=== PATIENT | female | born 2000 | race Caucasian/White ===

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

== ENCOUNTER 2018-04-16 08:54 | Emergency (ER) | payer OTHER ==
[~2018-04-16] VITALS: Ht 154.9 cm; Wt 64.0 kg
[~2018-04-16 08:54] MED LIST: ALBU-136 IH
[2018-04-16 09:29] VITALS: BP 132/80
[2018-04-16 11:05] VITALS: BP 128/78
== END 2018-04-16 11:05 | disposition home or self-care (01) ==
LOC: MED 08:54
DX: J45.909 Unspecified asthma, uncomplicated (principal); Z79.899 Other long term (current) drug therapy
CPT/HCPCS: 36415; 87804; 99284